=== PATIENT | female | born 1955 | race Caucasian/White ===

== ENCOUNTER 2019-10-29 17:13 | Emergency (ER) | payer BC ==
[2019-10-29] MEDS ORDERED: Cyclobenzaprine 10 MG Tab PO ONE (17:14)
[2019-10-29] MEDS ORDERED: Acetaminophen/HYDROcodone 325-5 MG Tab PO ONE (17:14)
[2019-10-29 17:27] VITALS: BP 143/76; PULSE 86
[2019-10-29] MEDS ORDERED: Ketorolac 30 MG/ML SDV IM ONE (17:32)
--- NOTE | 2019-10-29 17:50 | EDM.PDOC ---
Scribed by Marilou Montelongo 10/29/19 [id number] for Baljit Cameron PA ED HPI GENERAL MEDICAL PROBLEM - General Chief Complaint: Back Pain or Injury Stated Complaint: LEFT LOWER BACK SPASMS Time Seen by Provider: 10/29/19 17:27 Source of Information: Reports: Patient, RN, RN Notes Reviewed History Limitations: Reports: No Limitations - History of Present Illness INITIAL COMMENTS - FREE TEXT/NARRATIVE: This 64 yo female patient presents to the ER with left lower back--muscle spasm. The patient reports she took Ibuprofen x2 today without relief. Patient reports pain/spasms started this morning and have continued throughout the day. The patient denies any trauma or falls. The patient reports she has had similar symptoms in the past that got better with a muscle relaxer. Onset: Today Duration: Getting Worse Location: Reports: Back Quality: Reports: Ache Severity: Moderate Improves with: Reports: None Worsens with: Reports: None Associated Symptoms: Reports: No Other Symptoms Left Lower Back Pain Score (Numeric/FACES): 7 - Related Data Allergies Allergy/AdvReac Type Severity Reaction Status Date / Time No Known Allergies Allergy Verified 10/29/19 17:18 Home Meds: Home Meds Cholecalciferol (Vitamin D3) [Vitamin D] 1 tab PO DAILY 03/02/15 [History] Past Medical History - Past Health History Medical/Surgical History: Denies Medical/Surgical History HEENT History: Reports: Impaired Vision Cardiovascular History: Reports: None Respiratory History: Reports: None Gastrointestinal History: Reports: None Genitourinary History: Reports: None [employer] History: Reports: None Musculoskeletal History: Reports: None Neurological History: Reports: None Psychiatric History: Reports: None Endocrine/Metabolic History: Reports: None Hematologic History: Reports: None Immunologic History: Reports: None Oncologic (Cancer) History: Reports: None Dermatologic History: Reports: None - Infectious Disease History Infectious Disease History: Reports: None - Past Surgical History Head Surgeries/Procedures: Reports: None HEENT Surgical History: Reports: Naso-Sinus Surgery Social & Family History - Family History Family Medical History: Noncontributory - Tobacco Use Smoking Status *Q: Never Smoker - Caffeine Use Caffeine Use: Reports: Soda - Recreational Drug Use Recreational Drug Use: No ED ROS GENERAL - Review of Systems Review Of Systems: Comprehensive ROS is negative, except as noted in HPI. ED EXAM,LOWER BACK PAIN/INJURY - Physical Exam Exam: See Below Exam Limited By: No Limitations General Appearance: Alert, WD/WN, No Apparent Distress Eye Exam: Bilateral Eye: EOMI, Normal Inspection, PERRL Ears: Normal External Exam, Normal Canal, Hearing Grossly Normal, Normal TMs Nose: Normal Inspection, Normal Mucosa, No Blood Throat/Mouth: Normal Inspection, Normal Lips, Normal Teeth, Normal Gums, Normal Oropharynx, Normal Voice, No Airway Compromise Head: Atraumatic, Normocephalic Neck: Normal Inspection, Supple, Non-Tender, Full Range of Motion Respiratory/Chest: No Respiratory Distress, Lungs Clear, Normal Breath Sounds, No Accessory Muscle Use, Chest Non-Tender Cardiovascular: Normal Peripheral Pulses, Regular Rate, Rhythm, No Edema, No Gallop, No JVD, No Murmur, No Rub GI/Abdominal: Normal Bowel Sounds, Soft, Non-Tender, No Organomegaly, No Distention, No Abnormal Bruit, No Mass (Female) Exam: Deferred Rectal (Female) Exam: Deferred Back Exam: Other (left lower back pain with muscle spasms) Extremities: Normal Inspection Neurological: Alert, Normal Mood/Affect, Normal Dorsiflexion, CN II-XII Intact, Normal Plantar Flexion, Normal Gait, Normal Reflexes, No Motor/Sensory Deficits , Oriented x 3 Psychiatric: Normal Affect, Normal Mood Skin Exam: Warm, Dry, Intact, Normal Color, No Rash Course - Vital Signs Last Recorded V/S: Last Vital Signs Temp 37.1 C 10/29/19 17:26 Pulse 86 10/29/19 17:26 Resp 18 10/29/19 17:26 BP 143/76 H 10/29/19 17:26 Pulse Ox 100 10/29/19 17:26 - Orders/Labs/Meds Orders: Active Orders 24 hr Category Date Time Status CULTURE URINE [RM] Urgent Lab 10/29/19 17:37 Received Labs: Laboratory Tests 10/29/19 Range/Units 17:37 Urine Color Yellow (YELLOW) Urine Appearance Cloudy (CLEAR) Urine pH 8.5 (5.0-9.0) Ur Specific [place] 1.015 (1.005-1.030) Urine Protein Negative (NEGATIVE) Urine Glucose (UA) Negative (NEGATIVE) Urine Ketones Negative (NEGATIVE) Urine Occult Blood Negative (NEGATIVE) Urine Nitrite Negative (NEGATIVE) Urine Bilirubin Negative (NEGATIVE) Urine Urobilinogen 0.2 (0.2-1.0) mg/dL Ur Leukocyte Esterase Trace H (NEGATIVE) Urine RBC 0-5 /HPF Urine WBC 5-10 H (0-5/HPF) /HPF Ur Epithelial Cells Moderate H (NOT SEEN) /HPF Amorphous Sediment Many H (NOT SEEN) /HPF Urine Bacteria Moderate H (0-FEW/HPF) /HPF Meds: Medications Discontinued Medications Generic Name Dose Route Start Last Admin Trade Name Ed PRN Reason Stop Dose Admin Ketorolac Tromethamine 60 mg 10/29/19 17:32 10/29/19 17:42 Toradol IM 10/29/19 17:33 60 mg ONETIME ONE Administration Orphenadrine Citrate 60 mg 10/29/19 17:32 10/29/19 17:41 Norflex IM 10/29/19 17:33 60 mg ONETIME ONE Administration Departure - Departure Time of Disposition: 18:12 Disposition: Home, Self-Care 01 Condition: Fair Clinical Impression: Muscle spasm of back - Discharge Information *PRESCRIPTION DRUG MONITORING PROGRAM REVIEWED*: Not Applicable *COPY OF PRESCRIPTION DRUG MONITORING REPORT IN PATIENT SARAI: Not Applicable Instructions: Muscle Cramps and Spasms, [id number] Forms: ED Department Discharge Care Plan Goals: The patient was advised of the examination results during the visit. The patient was given an injection of Toradol (60 mg) and Norflex (60 mg) while in the ED. The patient was discharged with [place] (5/325) #1 to take at bedtime as needed and Flexeril (10 mg) #2 to take 1 by mouth every 6 hours as needed. The patient was also discharged with a script for Flexeril (10 mg) #10 to take 1 by mouth every 6 hours as needed. If the patient has any additional symptoms or concerns, the patient should either return to the emergency department or visit her primary care facility. - My Orders Last 24 Hours: My Active Orders 10/29/19 17:37 CULTURE URINE [RM] Urgent - Assessment/Plan Last 24 Hours: My Active Orders 10/29/19 17:37 CULTURE URINE [RM] Urgent I have read and agree with the documentation that has been completed regarding this visit. By signing this record, I attest that the documentation was completed in my physical presence and is an accurate record of the encounter.
[2019-10-29] MEDS ORDERED: Cyclobenzaprine 10 MG Tab ONE (18:14)
[2019-10-29] MEDS ORDERED: Acetaminophen/HYDROcodone 325-5 MG Tab ONE (18:14)
== END 2019-10-29 18:22 | disposition home or self-care (01) ==
LOC: DL.ED 17:13
DX: M62.830 Muscle spasm of back (principal)
CPT/HCPCS: 81001; 87086; 96372; 99283; A9270; J1885; J2360